=== PATIENT | male | born 1985 | race Caucasian/White ===

== ENCOUNTER 2017-12-27 23:27 | Emergency (ER) | payer SELFPAY ==
[2017-12-28] MEDS ORDERED: Bupivacaine 0.5% 10 ML VIAL ONE (00:13)
--- NOTE | 2017-12-28 07:32 | RAD ---
THREE VIEWS RIGHT 5TH TOE: HISTORY: Trauma, jammed toe in doorframe. FINDINGS: AP, lateral, and oblique views right 5th toe demonstrate a moderately displaced oblique fracture thro ugh the mid to distal aspect of proximal phalanx 5th digit right foot. There is lateral angulation. IMPRESSION: Displaced fracture involving the proximal phalanx 5th digit right foot. POS: [facility]
--- NOTE | 2017-12-28 08:17 | RAD ---
RIGHT TOE 3 VIEWS: HISTORY: Post reduction x-ray. COMPARISON: Radiograph same day. FINDINGS: Improved alignment of the fracture proximal phalanx 5th digit. IMPRESSION: Improved alignment post reduction. POS: [facility]
== END 2017-12-28 01:15 | disposition home or self-care (01) ==
LOC: SCSER 23:27
DX: S62.616A Displaced fracture of proximal phalanx of right little finger, initial encounter for closed fracture (principal); W22.03XA Walked into furniture, initial encounter
CPT/HCPCS: 28515; J3490